=== PATIENT | female | born 1940 | race African-American/Black ===

== ENCOUNTER 2018-03-14 11:44 | Emergency (ER) | payer OTHER ==
[~2018-03-14] VITALS: Ht 157.5 cm; Wt 63.5 kg
[2018-03-14 11:50] VITALS: BP_SYST 149
[2018-03-14] MEDS ORDERED: ONDANSETRON 4 MG ODT TAB PO ONE (12:30)
[2018-03-14 13:37] VITALS: BP_SYST 122
== END 2018-03-14 13:37 | disposition home or self-care (01) ==
LOC: SED 11:44
DX: K52.9 Noninfective gastroenteritis and colitis, unspecified (principal); R03.0 Elevated blood-pressure reading, without diagnosis of hypertension; Z88.5 Allergy status to narcotic agent; Z90.710 Acquired absence of both cervix and uterus
CPT/HCPCS: 99283; Q0162